=== PATIENT | male | born 1950 | race Caucasian/White ===

== ENCOUNTER 2017-01-21 12:09 | Emergency (ER) | payer OTHER, MEDICARE ==
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
[2017-01-21] MEDS ORDERED: MOTRIN PO ONE (16:40)
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
[2017-01-21 18:53] VITALS: BP 138/86
== END 2017-01-21 18:52 | disposition home or self-care (01) ==
LOC: ED 12:09
DX: S86.912A Strain of unspecified muscle(s) and tendon(s) at lower leg level, left leg, initial encounter (principal); S39.012A Strain of muscle, fascia and tendon of lower back, initial encounter; I10 Essential (primary) hypertension; E11.9 Type 2 diabetes mellitus without complications; Z87.891 Personal history of nicotine dependence; Z79.82 Long term (current) use of aspirin; V49.49XA Driver injured in collision with other motor vehicles in traffic accident, initial encounter; Y92.488 Other paved roadways as the place of occurrence of the external cause; Y93.89 Activity, other specified; Y99.9 Unspecified external cause status
CPT/HCPCS: 72100

== ENCOUNTER 2018-05-18 15:19 | Outpatient (CLI) | payer MEDICARE ==
--- NOTE | 2018-05-18 15:44 | XRay Report ---
CHEST TWO VIEWS: 05/18/18 15:19:00 CLINICAL: Cough. COMPARISON: None FINDINGS: Normal heart and pulmonary vasculature. The right hemidiaphragm is elevated and there is mild subsegmental atelectasis in the right lung base on the frontal view. Mild blunting of the right costophrenic angle. The lungs are otherwise clear. No airspace disease or pleural effusion.Aortic ectasia and tortuosity. Degenerative changes in the spine. IMPRESSION: Probable chronic elevation of the right hemidiaphragm and mild subsegmental atelectasis in the right lung base. No CHF or pneumonia.
== END 2018-05-18 15:20 | disposition home or self-care (01) ==
LOC: SPVIMAG 15:19
DX: J98.11 Atelectasis (principal); M47.814 Spondylosis without myelopathy or radiculopathy, thoracic region; I10 Essential (primary) hypertension; Z87.891 Personal history of nicotine dependence
CPT/HCPCS: 71046